=== PATIENT | male | born 1985 | race African-American/Black ===

== ENCOUNTER 2023-11-18 18:27 | Emergency (ER) | payer BC, SELFPAY ==
[2023-11-18 18:43] VITALS: BP 126/82; PULSE 77; RESP 12; TEMP 36.6; O2SAT 100
--- NOTE | 2023-11-18 19:09 | ED.SKABFB ---
HPI - Skin/Abscess/Foreign Bdy General Chief complaint: Skin/Abscess/Foreign Body Stated complaint: left hand swollen tingling in arm bit by spider Time Seen by Provider: 11/18/23 19:01 Source: patient and RN notes reviewed Mode of arrival: ambulatory Limitations: no limitations History of Present Illness HPI narrative: Patient presents today complaining of a spider bite to the base of his left 2nd finger that was sustained approximately 4 hours prior to arrival. He did witness the spider bite him and is currently experiencing some tingling to the finger and hand that he wanted to have evaluated. He has tried no [id number] treatment prior to arrival. Related Data Allergies Allergy/AdvReac Type Severity Reaction Status Date / Time No Known Allergies Allergy Verified 11/18/23 18:29 Review of Systems Review of Systems: CONSTITUTIONAL: Denies body aches, fever, chills, or sweats. EYES: Denies visual changes, redness, or discharge. ENT: Denies rhinorrhea, congestion, sore throat, or otalgia. CARDIOVASCULAR: Denies chest pain, palpitations, or edema. RESPIRATORY: Denies cough or dyspnea. GASTROINTESTINAL: Denies abdominal pain, nausea, vomiting, or diarrhea. GENITOURINARY: Denies dysuria or hematuria. SKIN: Denies rash, itching, or wounds.+ spider bite MUSCULOSKELETAL: Denies back pain, joint pain, or myalgia. NEUROLOGIC: Denies headache, numbness, tingling, or weakness. PSYCH: Denies depression or anxiety. PMFSH Comments At time of signature, I have reviewed and agree with nursing past medical, surgical, social and family history unless otherwise noted. Please see nursing chart for further information. There is no relevant family history pertinent to the presenting complaint Exam Narrative: GENERAL: Well-appearing, well-nourished, and in no acute distress. HEAD: Normocephalic, atraumatic. EYES: EOMI. No redness or drainage. Conjunctivae normal. ENT: Mucous membranes pink and moist. NECK: Normal AROM. CHEST: No respiratory distress. EXTREMITIES: Left hand: Patient localizes his spider bite to the 2nd aunt MCP where there is some slight pinkness. No edema or ecchymosis. Full AROM of the finger. Distal sensation intact. Capillary refill normal. SKIN: Warm, dry, no rash. Capillary refill normal. Normal skin turgor. NEURO: No focal deficits. Alert and oriented x3. Gait steady. PSYCH: Normal affect. No signs of depression or anxiety. Course Course Level of Care: Express Care Visit Vital Signs Vital signs: Vital Signs Temperature 97.8 F 11/18/23 18:43 Pulse Rate 77 11/18/23 18:43 Respiratory Rate 12 11/18/23 18:43 Blood Pressure 126/82 11/18/23 18:43 Pulse Oximetry 100 11/18/23 18:43 Oxygen Delivery Room Air 11/18/23 18:43 Temperature 97.8 F 11/18/23 18:43 Pulse Rate 77 11/18/23 18:43 Respiratory Rate 12 11/18/23 18:43 Blood Pressure 126/82 11/18/23 18:43 Pulse Oximetry 100 11/18/23 18:43 Oxygen Delivery Room Air 11/18/23 18:43 Reviewed MDM - Skin/Abscess/Foreign Bdy MDM Narrative Medical decision making narrative: Discussed with patient that majority of spider bites do not become infected, that he may be having an allergic reaction to the bite. Recommend antihistamine and anti-inflammatory. Will send prescription for Bactrim to the pharmacy that he can start in a couple of days if he develops an infection. Anticipatory guidance given. Differential Diagnosis Differential diagnosis: Likely insect bites and contact dermatitis Critical Care Time Critical Care Time Critical Care Time: No Discharge Plan Discharge Clinical Impression: Spider bite Qualifiers: Encounter type: initial encounter Injury intent: accidental or unintentional Qualified Code(s): T63.301A - Toxic effect of unspecified spider venom, accidental (unintentional), initial encounter Patient Disposition: Home, Self-Care Condition: Stable Instructions: Antibiotic For
== END 2023-11-18 19:20 | disposition home or self-care (01) ==
PROVIDERS: Emergency Provider Nurse Practitioner
DX: T63.301A Toxic effect of unspecified spider venom, accidental (unintentional), initial encounter (principal)
CPT/HCPCS: 99213; G0463

== ENCOUNTER 2024-03-30 15:05 | Emergency (ER) | payer BC, SELFPAY ==
[2024-03-30 15:24] VITALS: BP 132/58; PULSE 66; RESP 16; TEMP 36.4; O2SAT 100
--- NOTE | 2024-03-30 17:01 | ED.GENADULT ---
HPI - General Adult General Chief complaint: Recheck/Abnormal Lab/Rx Stated complaint: bit by dog yest., here for rabies vaccine Time Seen by Provider: 03/30/24 15:38 History of Present Illness HPI narrative: Patient is a 38-year-old male who presents ER for evaluation of a dog bite and possible rate was faxing the. He was bit yesterday. There is a dog that was loose being chased by its own orders. He was his students from where the dog was when the dog bit his left knee. He was seen in urgent care and given a tetanus shot and started on oral antibiotics. He is concerned he may need a rabies vaccine. Police have visited the home of the owners but not been able to establish contact. No additional issues with wound to the left knee. Related Data Allergies Allergy/AdvReac Type Severity Reaction Status Date / Time No Known Allergies Allergy Verified 03/30/24 15:37 Review of Systems Constitutional: Constitutional: Reports no additional constitutional complaints Musculoskeletal: Musculoskeletal: Reports no additional musculoskeletal complaints Integumentary/Breasts: Skin/Breast: Reports system reviewed and no additional complaints, except as docu PMFSH Past Medical History Medical History (Updated 03/30/24 @ 17:06 by Jose Alejandro Ervin MD) Healthy adult male Exam Narrative: GENERAL: Well-appearing, well-nourished, and in no acute distress. HEAD: Normocephalic, atraumatic. ENT: Mucous membranes moist. EXTREMITIES: Normal range of motion. No edema. SKIN: Warm, dry, no rash. A couple of superficial scratches to the left knee but there is 1 small v-shaped bite wound that is not infected inferior to the kneecap in left side. Less than 1 cm in total length. NEURO: No Alert and oriented x3. PSYCH: Normal mood and affect. Course Course Emergency Course: Patient has filled out a bite report and registration will fax it to the [facility] where patient was bit. Infectious disease nurse Kelsy Stubbs does not recommend rabies IG or vaccination as a dog is currently in possession by the homeowner association manager though it has been difficult to get ahold of them. She recommends that the health department/animal feed well continuing to attempt to make contact. Vital Signs Vital signs: Vital Signs Temperature 97.5 F L 03/30/24 15:24 Pulse Rate 66 03/30/24 15:24 Respiratory Rate 16 03/30/24 15:24 Blood Pressure 132/58 L 03/30/24 15:24 Pulse Oximetry 100 03/30/24 15:24 Oxygen Delivery Room Air 03/30/24 15:24 Temperature 97.5 F L 03/30/24 15:24 Pulse Rate 66 03/30/24 15:24 Respiratory Rate 16 03/30/24 15:24 Blood Pressure 132/58 L 03/30/24 15:24 Pulse Oximetry 100 03/30/24 15:24 Oxygen Delivery Room Air 03/30/24 15:24 Medical Decision Making Vital Signs Vital Signs: Vital Signs Temperature 97.5 F L 03/30/24 15:24 Pulse Rate 66 03/30/24 15:24 Respiratory Rate 16 03/30/24 15:24 Blood Pressure 132/58 L 03/30/24 15:24 Pulse Oximetry 100 03/30/24 15:24 Oxygen Delivery Room Air 03/30/24 15:24 Temperature 97.5 F L 03/30/24 15:24 Pulse Rate 66 03/30/24 15:24 Respiratory Rate 16 03/30/24 15:24 Blood Pressure 132/58 L 03/30/24 15:24 Pulse Oximetry 100 03/30/24 15:24 Oxygen Delivery Room Air 03/30/24 15:24 Discharge Plan Discharge Clinical Impression: Dog bite Patient Disposition: Home, Self-Care Condition: Stable Instructions: Animal Bite (ED) Additional Instructions: Follow-up with the health department regarding the status of the animal that bit you. It is not recommended by the Infectious Disease nurse to start rabies immunization at this time. Prescriptions: No Action sulfamethoxazole-trimethoprim [Bactrim DS] 800-160 mg tablet 1 tablet PO Q12H 7 Days Qty: 14 0RF Follow-up/Referrals: Melissa,Andres Fleming MD [Primary Care Provider] - 1 Week
--- NOTE | 2024-03-30 17:02 | PC.NURSE ---
This RN contacted Kelsy, pharmacy intern. Her recommendation is not to give the Rabies vaccine/Immunoglobulin. Recommends contacting animal control.
== END 2024-03-30 17:25 | disposition home or self-care (01) ==
PROVIDERS: Emergency Provider Emergency Medicine; PCP Family Medicine
DX: S81.052A Open bite, left knee, initial encounter (principal); W54.0XXA Bitten by dog, initial encounter
CPT/HCPCS: 99282